=== PATIENT | female | born 1960 | race Caucasian/White ===

== ENCOUNTER 2018-04-30 16:58 | Emergency (ER) | payer OTHER ==
--- NOTE | 2018-04-30 17:24 | EDPHY ---
H & P Time Seen by Provider: 04/30/18 17:07 HPI/ROS: CHIEF COMPLAINT: Right eye vision loss HISTORY OF PRESENT ILLNESS: Patient is a 57-year-old female with no significant past medical history who states that this morning she noticed a small arced area of blurry dark vision at the bottom of her visual field on the right eye. The vision in her left eye is unchanged. Throughout the days she has noticed that this area of blurry/dark vision has gradually worsened to being either black or palomo and has increased in size and is now approximately half of her visual field of the right eye. There was no trauma to the eye. She denies any pain. She does wear contacts. She takes no prescribed medications. She does not smoke or use any drugs or alcohol. ROS As detailed in HPI Smoking Status: Never smoked Physical Exam: General: Alert and oriented. Nontoxic appearing. No acute distress HEENT: Pupils PERRLA. Normal funduscopic exam. No oral lesions. Cardiopulmonary: Regular rate and rhythm. No lower extremity edema Skin: [place] warm and dry. No lesions. Muscle skeletal: Moving all 4 extremities. Equal strength in upper extremities and lower extremities. Ambulatory. Constitutional: Initial Vital Signs Temperature (C) 36.5 C 04/30/18 16:59 Heart Rate 72 04/30/18 16:59 Respiratory Rate 16 04/30/18 16:59 Blood Pressure 146/72 H 04/30/18 16:59 O2 Sat (%) 96 04/30/18 16:59 O2 Delivery Mode Room Air Allergies/Adverse Reactions: No Known Allergies Allergy (Unverified 04/30/18 17:05) Home Medications: Medication Instructions Recorded NK [No Known Home Meds] 04/30/18 Medical Decision Making ED Course/Re-evaluation: 57-year-old female here with right eye vision loss starting this morning. History and exam concerning for retinal detachment. Patient was seen and evaluated by [place] in the emergency room and agrees with diagnosis of retinal detachment. Patient was sent directly to Dr. Koo's office was awaiting her for surgical intervention. Patient agrees with this plan. Differential Diagnosis: Retinal detachment, open globe, vitreous hemorrhage, macular degeneration Departure - Departure Disposition: To OP Cath/Surgery Clinical Impression: Retinal detachment, right Condition: Fair Instructions: Surgery for Retinal Detachment (DC) Additional Instructions: Go directly to Dr. Koo's office now. He is waiting for you to proceed with surgery. Referrals: Crista Bhatti MD [Primary Care Provider] - As per Instructions Salma Koo MD [Medical Doctor] - As per Instructions
[2018-04-30 18:12] VITALS: BP 165/71
--- NOTE | 2018-05-01 04:46 | GCON ---
OPHTHALMOLOGY CONSULT REPORT REASON FOR CONSULTATION: I was called by SAEED, Michael Montgomery, as the patient had sudden decrease i n vision in the lower quadrant of her vision in the right eye. HISTORY OF PRESENT ILLNESS: This is a 57-year-old woman, who noticed decreased vision in the inferio r field of her right eye starting this morning and worsened throughout the day. She had flashing lig hts and floaters. PAST MEDICAL HISTORY: No previous eye complaints. No other medical history. MEDICATIONS: Multivitamin. ALLERGIES: None. SOCIAL HISTORY: Noncontributory. FAMILY HISTORY: No history of eye problems. REVIEW OF SYSTEMS: All negative, except for the loss of vision. PHYSICAL EXAMINATION: EYES: Vision was 20/70 in the right eye and 20/20 in the left eye. She did h ave a mild APD in the right eye. Light intensity was decreased significantly in the right eye. Conf rontational aguillon showed decreased vision inferiorly in the right, otherwise intact. Eyelids were n ormal. Conjunctivae and sclerae were normal. Corneas were normal. Anterior chamber was deep. Iris was normal. Lens was normal. She was dilated at 6 o'clock with tropicamide and phenylephrine. Dil ated fundus exam showed a superior retinal detachment. Macula appeared to be on, although her vision was down. Vessels were normal. Disks were normal. ASSESSMENT: Retinal detachment superiorly in the right eye. Vision was 20/70, so macula is likely p ulling away some. PLAN: I spoke with Dr. Salma Koo from the retina service and he has agreed to see her immediatel y. /[id number]/MODL
== END 2018-04-30 18:13 | disposition still patient (30) ==
DX: H54.61 Unqualified visual loss, right eye, normal vision left eye (principal); H33.001 Unspecified retinal detachment with retinal break, right eye

== ENCOUNTER → 2018-06-09 | Outpatient (CLI) | payer OTHER | LOC: FIMAGING 08:37 | PROVIDERS: ATTEND Family Medicine | DX: N88.8 Other specified noninflammatory disorders of cervix uteri (principal) ==